=== PATIENT | male | born 2000 | race Caucasian/White ===

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

== ENCOUNTER 2018-02-08 15:34 | Emergency (ER) | payer BC, OTHER ==
[2018-02-08 16:01] VITALS: BP 133/71
--- NOTE | 2018-02-08 16:23 | UC ---
Back Pain HPI - HPI Summary HPI Summary: The patient is a 18-year-old male that has been ill for about a week. He has had a runny nose and nasal congestion with it which have improved. He may have had a fever and felt chills at the onset. He had dysuria and urgency. These symptoms have improved. He now has some mild left-sided lower back pain. He denies any hematuria. He denies any nausea vomiting or diarrhea. - History of Current Complaint Chief Complaint: UCGeneralIllness Stated Complaint: LEFT SIDE BACK PAIN Time Seen by Provider: 02/08/18 15:57 Hx Obtained From: Patient Onset/Duration: Gradual Onset, Lasting Days Timing: Constant Severity Initially: Moderate Severity Currently: Mild Pain Intensity: 4 Pain Scale Used: 0-10 Numeric Back Pain: Is Discrete @ - left lower back Character: Dull, Aching Aggravating Factor(s): Nothing Alleviating Factor(s): Nothing Associated Signs And Symptoms: Negative: Swelling, Redness, Bruising, Fever, Weakness, Numbness, Tingling, Abdominal Pain, Flank Pain, Bladder Incontinence, Bowel Incontinence, Weight Loss, Pain with Weight Bearing - Allergies/Home Medications Allergies/Adverse Reactions: Allergies Allergy/AdvReac Type Severity Reaction Status Date / Time No Known Allergies Allergy Verified 02/08/18 15:54 Home Medications: Home Medications NK [No Home Medications Reported] 02/08/18 [History Confirmed 02/08/18] PMH/Surg Hx/FS Hx/Imm Hx Previously Healthy: Yes Other History Of: Negative For: HIV, Hepatitis B, Hepatitis C, Anticoagulant Therapy - Surgical History Surgical History: None - Family History Known Family History: Positive: Cardiac Disease Negative: Hypertension, Diabetes, Renal Disease - Social History Alcohol Use: Occasionally Substance Use Type: None Smoking Status (MU): Never Smoked Tobacco Review of Systems All Other Systems Reviewed And Are Negative: Yes Constitutional: Positive: Negative Skin: Positive: Negative Eyes: Positive: Negative ENT: Positive: Nasal Discharge, Sinus Congestion Respiratory: Positive: Negative Cardiovascular: Positive: Negative Gastrointestinal: Positive: Negative Genitourinary: Positive: Dysuria - resolved Motor: Positive: Negative Neurovascular: Positive: Negative Musculoskeletal: Positive: Negative Neurological: Positive: Negative Psychological: Positive: Negative Physical Exam Triage Information Reviewed: Yes Appearance: Well-Appearing, No Pain Distress, Well-Nourished Vital Signs: Initial Vital Signs Temp 98.2 F 02/08/18 15:55 Pulse 81 02/08/18 15:55 Resp 16 02/08/18 15:55 BP 133/71 02/08/18 15:55 Pulse Ox 100 02/08/18 15:55 Vital Signs Reviewed: Yes Eyes: Positive: Conjunctiva Clear ENT: Positive: Hearing grossly normal, Nasal congestion, Nasal drainage, Uvula midline. Negative: Trismus, Muffled voice, Hoarse voice, Sinus tenderness Neck: Positive: Supple, Nontender, No Lymphadenopathy Respiratory: Positive: Lungs clear, Normal breath sounds, No respiratory distress, No accessory muscle use Cardiovascular: Positive: RRR, No Murmur, Pulses Normal Abdomen Description: Positive: Nontender, No Organomegaly, Soft. Negative: CVA Tenderness (R), CVA Tenderness (L) Musculoskeletal: Positive: ROM Intact, No Edema Neurological: Positive: Alert Psychological Exam: Normal Skin Exam: Normal Diagnostics - Laboratory Diagnostic Studies Completed/Ordered: UA no leuks or RBCs Back Pain Course/Dx - Differential Dx/Diagnosis Provider Diagnosis: Dysuria, Back pain Discharge - Sign-Out/Discharge Documenting (check all that apply): Patient Departure All imaging exams completed and their final reports reviewed: No Studies - Discharge Plan Condition: Stable Disposition: HOME Patient Education Materials: Dysuria (ED), Back Pain (ED) Referrals: No Primary Care Phys,NOPCP [Primary Care Provider] - Additional Instructions: your urine was clear a urine culture and test for STDs is pending....they will take 2-3 days continue ibuprofen I suggest you get rechecked when you get back home if not better - Billing Disposition and Condition Condition: STABLE Disposition: Home
--- NOTE | 2018-02-09 14:13 | UC ---
- Progress Note Progress Note: Pt with + Chlamydia neg GC no treatment at time of eval Will Rx zithromax 1g po x 1 Please call RN [facility] be eval/ treated Please let pt know NAYA may cotnact him as this was reported [place] 02/09/18 Course/Dx - Diagnoses Provider Diagnoses: Dysuria, Back pain Discharge - Sign-Out/Discharge Documenting (check all that apply): Post-Discharge Follow Up All imaging exams completed and their final reports reviewed: No Studies - Discharge Plan Condition: Stable Disposition: HOME Prescriptions: Azithromycin TAB* [Zithromax TAB (Z-SWATI) 250 mg #6 tabs] 1,000 mg PO ONCE #4 tab Patient Education Materials: Dysuria (ED), Back Pain (ED) Referrals: No Primary Care Phys,NOPCP [Primary Care Provider] - Additional Instructions: your urine was clear a urine culture and test for STDs is pending....they will take 2-3 days continue ibuprofen I suggest you get rechecked when you get back home if not better - Billing Disposition and Condition Condition: STABLE Disposition: Home
== END 2018-02-08 16:34 | disposition home or self-care (01) ==
LOC: UCCORT 15:34
DX: R30.0 Dysuria (principal); M54.5 Low back pain
CPT/HCPCS: 81003; 87086; 87491; 87591; 99211; G0463

== ENCOUNTER 2018-04-08 15:33 | Emergency (ER) | payer BC, OTHER ==
[2018-04-08 16:06] VITALS: BP 120/70
--- NOTE | 2018-04-08 16:27 | UC ---
Complaint Male HPI - HPI Summary HPI Summary: Pt presents with c/o left testicular pain that has been intermittent over the last 3-4 dasy. Pt states that left testicle is higher than right, that pain radiates posteriorly, denies dysuria, denies risk for STD denies injury. Pt denies radiating pain, swelling difficulty urinating or pain with BM. Pt was diagnosed wiht chlamydia in January 2018 and given 1 GM of zithromax. - History of Current Complaint Chief Complaint: UCAbdominalPain Stated Complaint: ABD PAIN Time Seen by Provider: 04/08/18 16:07 Hx Obtained From: Patient Onset/Duration: Sudden Onset, Lasting Days, Still Present Timing: Intermittent, Lasting Minutes, Lasting Hours Severity Initially: Mild Severity Currently: Mild Pain Intensity: 6 Location: Testicle - left Character: Constant Pressure Aggravating Factor(s): Palpation, Other - movement Alleviating Factor(s): Other - rest Associated Signs And Symptoms: Positive: Negative - Risk Factors Testicular Torsion: Negative - Allergies/Home Medications Allergies/Adverse Reactions: Allergies Allergy/AdvReac Type Severity Reaction Status Date / Time No Known Allergies Allergy Verified 04/08/18 15:58 Home Medications: Home Medications Ibuprofen TAB* [Advil TAB*] 200 mg PO Q6H PRN 04/08/18 [History Confirmed ] PMH/Surg Hx/FS Hx/Imm Hx Previously Healthy: Yes Other History Of: Negative For: HIV, Hepatitis B, Hepatitis C, Anticoagulant Therapy - Surgical History Surgical History: None - Family History Known Family History: Positive: Cardiac Disease Negative: Hypertension, Diabetes, Renal Disease - Social History Occupation: Student - [employer] Lives: Dormitory/Roommates Alcohol Use: Occasionally Substance Use Type: None Smoking Status (MU): Never Smoked Tobacco Have You Smoked in the Last Year: No - Immunization History Vaccination Up to Date: Yes Review of Systems All Other Systems Reviewed And Are Negative: Yes Constitutional: Positive: Negative Skin: Positive: Negative Eyes: Positive: Negative ENT: Positive: Negative Respiratory: Positive: Negative Cardiovascular: Positive: Negative Gastrointestinal: Positive: Negative Genitourinary: Positive: Other - left testicle pain Motor: Positive: Negative Neurovascular: Positive: Negative Musculoskeletal: Positive: Negative Neurological: Positive: Negative Psychological: Positive: Negative Is Patient Immunocompromised?: No Physical Exam Triage Information Reviewed: Yes Appearance: Well-Appearing Vital Signs: Initial Vital Signs Temp 97.6 F 04/08/18 15:59 Pulse 74 04/08/18 15:59 Resp 16 04/08/18 15:59 BP 120/70 04/08/18 15:59 Pulse Ox 99 04/08/18 15:59 Vital Signs Reviewed: Yes Eye Exam: Normal ENT: Positive: Hearing grossly normal Dental Exam: Normal Neck exam: Normal Respiratory Exam: Normal Cardiovascular Exam: Normal Male Genital Exam: Positive: Testicular Tenderness (L) - left epididymis tenderness, left testicle higher than rght, no testicular swelling, negative for bialteral inguinal hernia, negative for pain in left spermatic cord. Musculoskeletal Exam: Normal Neurological Exam: Normal Psychological Exam: Normal Skin Exam: Normal Complaint Male Course/Dx - Course Course Of Treatment: I discussed my concern for testicular torsion and advised the pt to go to the [facility] ER for further evaluation and testing. Pt verbalized understanding and stated he would only go to the ER if pain worsens. I encouraged pt to go directly to closest ER for further teesting and evaluation - Differential Dx/Diagnosis Differential Diagnosis/HQI/PQRI: Epididymitis, Testicular Torsion, Urinary Tract Infection Provider Diagnosis: Epididymitis, Testicular pain, left Discharge - Sign-Out/Discharge Documenting (check all that apply): Patient Departure All imaging exams completed and their final reports reviewed: No Studies - Discharge Plan Condition: Stable Disposition: HOME-RECOMMEND TO ED Prescriptions: DOXYcycline CAP(*) [DOXYcycline 100MG CAP(*)] 100 mg PO Q12H #20 cap Patient Education Materials: Testicle Pain (ED) Referrals: Jada Thomason MD [Medical Doctor] - If Needed No Primary Care Phys,NOPCP [Primary Care Provider] - Additional Instructions: PLEASE NOTE YOU HAVE BEEN RECOMMENDED TO GO TO THE [facility] EMERGENCY ROOM FOR FURTHER TESTING AND EVALUATION. - Billing Disposition and Condition Condition: STABLE Disposition: Home-Recommend to ED
[2018-04-10 13:57] LABS: Neisseria gonorrhoeae (GC) RNA Negative (Negative)
== END 2018-04-08 16:41 | disposition home health service (06) ==
LOC: UCCORT 15:33
DX: N50.812 Left testicular pain (principal); N45.1 Epididymitis
CPT/HCPCS: 81003; 87491; 87591; 99212; G0463